=== PATIENT | female | born 1985 | race American Indian/Alaskan Native ===

== ENCOUNTER 2017-02-21 15:07 | Emergency (ER) | payer SELFPAY ==
[2017-02-21 16:32] VITALS: BP 116/65
[2017-02-21] MEDS ORDERED: ZITHROMAX PO ONE (21:49)
[2017-02-21] MEDS ORDERED: ROCEPHIN IM ONE (21:49)
[2017-02-21] MEDS ORDERED: XYLOCAINE 1% MPF 5 mL INFILTRATI ONE (21:49)
--- NOTE | 2017-02-21 21:51 | Emergency Department Report ---
ED Female HPI - General Chief complaint: Urogenital-Female Stated complaint: stomach pains, vaginal discharge Time Seen by Provider: 02/21/17 21:34 Source: patient Mode of arrival: Ambulatory Limitations: No Limitations - History of Present Illness Initial comments: This is a 31-year-old female nontoxic, well nourished in appearance, no acute signs of distress presents to the ED complaining of thick green vaginal discharge for 3 weeks. Patient stated she had central intercourse with a known partner without protection and then developed these vaginal discharge. Patient stated she is concerned about STD. Patient denies any dysuria, polyuria or hematuria. Denies flank pain or back pain, abdominal pain, chest pain, short of breath, nausea, vomiting, chest pain numbness or tingling. Patient is also stating that her vaginal area is irritation and is itching. Patient denies any allergies. Past medical history includes ovarian cyst. MD Complaint: vaginal discharge -: Gradual, week(s) (3) Radiation: non-radiating Severity: mild Severity scale (0 -10): 5 Quality: burning Consistency: constant Improves with: none Worsens with: none Are you Now?: No Last Menstrual Period: 02/07/17 EDC: 11/14/17 Associated Symptoms: vaginal discharge. denies: vaginal bleeding, abdominal pain, nausea/vomiting, fever/chills, headaches, loss of appetite, dysuria, hematuria, rash, seizure, shortness of breath, syncope, weakness - Related Data Sexually active: Yes Previous Rx's Medication Instructions Recorded Last Taken Type Albuterol Sulfate [Ventolin HFA] 2 puff IH Q4H PRN #1 hfa.aer.ad 06/11/13 Unknown Rx Ondansetron [Zofran] 4 mg PO Q6HR PRN #10 tablet 06/11/13 Unknown Rx LORazepam [Ativan] 1 mg PO QHS #12 tab 06/23/13 Unknown Rx Famotidine [Pepcid] 20 mg PO BID #20 tablet 10/27/13 Unknown Rx Naproxen [Naprosyn] 375 mg PO BID #20 tablet 10/27/13 Unknown Rx Allergies Allergy/AdvReac Type Severity Reaction Status Date / Time No Known Allergies Allergy Verified 11/23/13 20:08 ED Review of Systems ROS: Stated complaint: stomach pains, vaginal discharge Other details as noted in HPI Constitutional: denies: chills, fever Eyes: denies: eye pain, eye discharge, vision change ENT: denies: ear pain, throat pain Respiratory: denies: cough, shortness of breath, wheezing Cardiovascular: denies: chest pain, palpitations Endocrine: no symptoms reported Gastrointestinal: denies: abdominal pain, nausea, diarrhea Genitourinary: discharge. denies: urgency, dysuria Musculoskeletal: denies: back pain, joint swelling, arthralgia Skin: denies: rash, lesions Neurological: denies: headache, weakness, paresthesias Psychiatric: denies: anxiety, depression Hematological/Lymphatic: denies: easy bleeding, easy bruising ED Past Medical Hx - Past Medical History Previous Medical History?: Yes Additional medical history: ovarian cyst. "Clotting factor high". - Surgical History Additional Surgical History: IUD - Social History Smoking Status: Never Smoker Substance Use Type: None - Medications Home Medications: Home Medications Medication Instructions Recorded Confirmed Last Taken Type Albuterol Sulfate [Ventolin HFA] 2 puff IH Q4H PRN #1 hfa.aer.ad 06/11/13 Unknown Rx Ondansetron [Zofran] 4 mg PO Q6HR PRN #10 tablet 06/11/13 Unknown Rx LORazepam [Ativan] 1 mg PO QHS #12 tab 06/23/13 Unknown Rx Famotidine [Pepcid] 20 mg PO BID #20 tablet 10/27/13 Unknown Rx Naproxen [Naprosyn] 375 mg PO BID #20 tablet 10/27/13 Unknown Rx ED Physical Exam - General Limitations: No Limitations General appearance: alert, in no apparent distress - Head Head exam: Present: atraumatic, normocephalic, normal inspection - Eye Eye exam: Present: normal appearance, PERRL, EOMI. Absent: scleral icterus, conjunctival injection, nystagmus, periorbital swelling, periorbital tenderness Pupils: Present: normal accommodation - ENT ENT exam: Present: normal exam, normal orophraynx, mucous membranes moist, TM's normal bilaterally, normal external ear exam - Neck Neck exam: Present: normal inspection, full ROM. Absent: tenderness, meningismus, lymphadenopathy, thyromegaly - Respiratory Respiratory exam: Present: normal lung sounds bilaterally. Absent: respiratory distress, wheezes, rales, rhonchi, stridor - Cardiovascular Cardiovascular Exam: Present: regular rate, normal rhythm, normal heart sounds. Absent: systolic murmur, diastolic murmur, rubs, gallop - GI/Abdominal GI/Abdominal exam: Present: soft, normal bowel sounds. Absent: distended, tenderness, guarding, rebound, rigid, diminished bowel sounds - Rectal Rectal exam: Present: deferred - External exam: Present: normal external exam, other (event marketing coordinator Timmy RN present during exam). Absent: erythema, swelling, lesions, lacerations, ecchymosis, bleeding Speculum exam: Present: normal speculum exam, cervical discharge (white/ yellowish discharge with foul order), other (event marketing coordinator Timmy RN present during exam). Absent: erythema, vaginal discharge, vaginal bleeding, foreign body, tissue, laceration Bi-manual exam: Present: normal bi-manual exam, other (event marketing coordinator Timmy RN present during exam). Absent: cervical motion tendernes, adnexal tenderness, adnexal mass, uterine enlargement, uterine tenderness - Extremities Exam Extremities exam: Present: normal inspection, full ROM, normal capillary refill. Absent: tenderness, pedal edema, joint swelling, calf tenderness - Back Exam Back exam: Present: normal inspection, full ROM. Absent: tenderness, CVA tenderness (R), CVA tenderness (L), muscle spasm, paraspinal tenderness, vertebral tenderness, rash noted - Neurological Exam Neurological exam: Present: alert, oriented X3, CN II-XII intact, normal gait, reflexes normal - Psychiatric Psychiatric exam: Present: normal affect, normal mood - Skin Skin exam: Present: warm, dry, intact, normal color. Absent: rash ED Course Vital Signs 02/21/17 16:28 Temperature 98 F Pulse Rate 58 L Respiratory 20 Rate Blood Pressure 116/65 O2 Sat by Pulse 100 Oximetry - Reevaluation(s) Reevaluation #1: 02/21/17 21:51 Patient is speaking in full sentences with no signs of distress noted. ED Medical Decision Making - Medical Decision Making 31-year-old female that presents with vaginal irritation and discharge. Wet prep and UA has been obtained with negative findings of any abnormalities. The patient clinically symptoms patient received Diflucan in the ED. Patient also received Rocephin and azithromycin. Patient was instructed to return to obtain results of gonorrhea and chlamydia. Patient was instructed to follow-up with a primary care doctor in 3-5 days or if symptoms worsen and continue return to emergency room as soon as possible possible. At time time of discharge, the patient does not seem toxic or ill in appearance. No acute signs of distress noted. Patient agrees to discharge treatment plan of care. No further questions noted by the patient. Critical care attestation.: If time is entered above; I have spent that time in minutes in the direct care of this critically ill patient, excluding procedure time. ED Disposition Clinical Impression: Vaginal discharge, Possible exposure to STD Disposition: DC-01 TO HOME OR SELFCARE Is pt being admited?: No Does the pt Need Aspirin: No Condition: Stable Instructions: Safe Sex (ED) Additional Instructions: Return and to 3-5 days to medical records to obtain results of gonorrhea/ chlamydia Follow-up with a primary care doctor in 3-5 days or if symptoms worsen and continue return to emergency room as soon as possible possible. Referrals: PRIMARY MD MARIO [Primary Care Provider] - 3-5 Days LUDA ROSE MD [Staff Physician] - 3-5 Days CHRISTINA BAGLEY MD [Staff Physician] - 3-[address] [facility] [Outside] - 3-5 Days [facility] [place][Note 3] [Outside] - 3-5 Days Forms: Work/School Release Form(ED)
[2017-02-21 22:26] LABS: Bilirubin,Urine NEG (Negative); Blood,Urine NEG (Negative); Ketones,Urine NEG (Negative); Leukocyte Esterase,Urine NEG (Negative); Mucus,Urine FEW /HPF; Nitrite,Urine NEG (Negative); Protein,Urine <15 mg/dL mg/dL (Negative); Urobilinogen,Urine < 2.0 mg/dL (<2.0); WBC,Urine < 1.0 /HPF (0.0-6.0)
[2017-02-21] MEDS ORDERED: DIFLUCAN PO ONE (22:49)
== END 2017-02-22 00:13 | disposition home or self-care (01) ==
LOC: ED 15:07
DX: N89.8 Other specified noninflammatory disorders of vagina (principal)
CPT/HCPCS: 81001; 81025; 87210; 87591; 96372; 99284; J0696